=== PATIENT | female | born 1960 | race Caucasian/White ===

== ENCOUNTER → 2024-08-29 09:31 | Outpatient (REF) | payer MEDICARE, OTHER, SELFPAY | LOC: RCS 09:31 | PROVIDERS: ATTENDING PHYSICIAN Internal Medicine; FAMILY PHYSICIAN Family Medicine | DX: I25.10 Atherosclerotic heart disease of native coronary artery without angina pectoris (principal); R07.89 Other chest pain; R06.00 Dyspnea, unspecified | CPT/HCPCS: 93306 ==